=== PATIENT | male | born 1990 | race Caucasian/White ===

== ENCOUNTER 2018-10-07 20:10 | Emergency (ER) | payer BC ==
[2018-10-07 20:19] VITALS: BP 156/88; PULSE 98; TEMP 97.8; BMI 29.0
--- NOTE | 2018-10-07 20:42 | PDOC ---
Documentation entered by Alireza Frost SCRIBE, acting as scribe for Kai Le MD. Kai Le MD: This documentation has been prepared by the Margot loyd Juan Manue, SCRIBE, under my direction and personally reviewed by me in its entirety. I confirm that the documentation accurately reflects all work, treatment, procedures, and medical decision making performed by me. History of Present Illness - General Chief Complaint: Laceration Stated Complaint: CHIN LACERATION Time Seen by Provider: 10/07/18 20:21 History Source: Patient Exam Limitations: No Limitations - History of Present Illness Initial Comments: 10/07/18 20:39 The patient is a 28 year old male, who presents to the ED complaining of a chin laceration that occurred today. He notes that he was playing softball when he slid into second base and hit his chin against the ground. He reports blood from the area and was able to stop the bleeding by applying pressure with a paper towel. He denies any loss of consciousness. The patient denies any head trauma or any other kind of injury. PAST MEDICAL HISTORY: no significant history PAST SURGICAL HISTORY: no significant history FAMILY HISTORY: no pertinent history SOCIAL HISTORY: Pt lives with family and is employed. MEDICATIONS: reviewed ALLERGIES: As per nursing notes General: No fevers or chills, no weakness, no weight loss HEENT: No change in vision. No sore throat,. No ear pain Chin: (+) Laceration under the chin. CardioVascular: No chest pain or shortness of breath Respiratory:No cough, or wheezing. Gastrointestinal: no nausea, vomiting, diarrhea or constipation, No rectal bleeding Genitourinary: No dysuria, hematuria, or frequency Musculoskeletal: No joint or muscle pain or swelling Neurologic: No headache, vertigo, dizziness or loss of consciousness Psychiatric: nor depression Skin: No rashes or easy bruising Endocrine: no increased thirst or abnormal weight change Allergic: no skin or latex allergy All other systems reviewed and normal GENERAL: The patient is awake, alert, and fully oriented, in no acute distress. HEAD: Normal with no signs of trauma. CHIN: (+) 1.5 cm laceration submendal area of the chin, no bony tenderness, no lose teeth, no tenderness of the jaw. EYES: Pupils equal, round and reactive to light, extraocular movements intact, sclera anicteric, conjunctiva clear. EXTREMITIES: Normal range of motion, no edema. NEUROLOGICAL: Normal speech, normal gait. PSYCH: Normal mood, normal affect. SKIN: Warm, Dry, normal turgor, no rashes or lesions noted. 10/07/18 20:41 Assessment and plan: This is a 28-year-old male who comes in complaining of a chin laceration. Patient slid into second base and hit his chin on the ground resulting in the laceration. Patient denies any neck pain or any other injuries. Laceration will be sutured and patient discharged 10/07/18 20:43 Procedure note laceration repair Laceration was anesthetized with 3 mL of lidocaine no epinephrine Laceration was cleaned with approximately 100 mL using a Zerowet and pressure irrigation Laceration was closed with a total of 4 sutures of 50 simple interrupted Sterile dressing was applied patient tolerated well Past History - Past Medical History Allergies/Adverse Reactions: Allergies Allergy/AdvReac Type Severity Reaction Status Date / Time amoxicillin Allergy Hives Verified 10/07/18 20:11 Home Medications: Ambulatory Orders NK [No Known Home Medication] 10/07/18 COPD: No Other medical history: DENIES - Suicide/Smoking/Psychosocial Hx Smoking History: Never smoked Have you smoked in the past 12 months: No Information on smoking cessation initiated: No Hx Alcohol Use: (social) *Physical Exam - Vital Signs Last Vital Signs Temp Pulse Resp BP Pulse Ox 97.8 F 98 H 16 156/88 99 10/07/18 20:11 10/07/18 20:11 10/07/18 20:11 10/07/18 20:11 10/07/18 20:11 *DC/Admit/Observation/Transfer Diagnosis at time of Disposition: Laceration of chin Qualifiers: Encounter type: initial encounter Qualified Code(s): S01.81XA - Laceration without foreign body of other part of head, initial encounter - Discharge Dispostion Disposition: HOME Condition at time of disposition: Stable Decision to Admit order: No - Referrals - Patient Instructions Printed Discharge Instructions: DI for Laceration Repair Additional Instructions: Suture removal in 8-10 days. Tylenol or Motrin as needed for pain. Return to the emergency department immediately with ANY new, persistent or worsening symptoms. Continue any medications as previously prescribed by your physician. You should follow up with your primary doctor as soon as possible regarding today's emergency department visit. . Please make sure your doctor reviews the results of your emergency evaluation. Thank you for coming to the Emergency Department today for your care. It was a pleasure to see you today. Please note that your evaluation is INCOMPLETE until you follow-up with your doctor. - Post Discharge Activity - Attestations Scribe Attestion: 10/07/18 20:39 Documentation prepared by Alireza Frost, acting as medical billing service for Kai Le MD
[2018-10-07] MEDS ORDERED: DIPHTH,PERTUSS(ACELL),TET 0.5 ML DISP.SYRIN IM ONE ×2 (20:44→20:46)
== END 2018-10-07 21:05 | disposition home or self-care (01) ==
LOC: FER 20:10
PROC: 0HQ1XZZ Repair Face Skin, External Approach (ICD-10-PCS; principal; 2018-10-07)
PROC: 3E0234Z Introduction of Serum, Toxoid and Vaccine into Muscle, Percutaneous Approach (ICD-10-PCS; 2018-10-07)
DX: S01.81XA Laceration without foreign body of other part of head, initial encounter (principal); W45.8XXA Other foreign body or object entering through skin, initial encounter; Y93.64 Activity, baseball; Y92.320 Baseball field as the place of occurrence of the external cause
CPT/HCPCS: 90715; 99283-25

== ENCOUNTER 2019-03-05 01:20 | Emergency (ER) | payer BC ==
[2019-03-05 01:32] VITALS: BP 133/78; PULSE 85; TEMP 97.8; BMI 29.1
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
[2019-03-05] MEDS ORDERED: IBUPROFEN 400 MG TABLET (FP) PO ONE (02:42)
[2019-03-05] MEDS ORDERED: IBUPROFEN 600 MG TABLET (FP) PO ONE (02:45)
== END 2019-03-05 02:53 | disposition home or self-care (01) ==
LOC: FER 01:20
DX: S82.891A Other fracture of right lower leg, initial encounter for closed fracture (principal); I10 Essential (primary) hypertension; Y04.2XXA Assault by strike against or bumped into by another person, initial encounter; Y93.89 Activity, other specified; Y92.89 Other specified places as the place of occurrence of the external cause; Z88.8 Allergy status to other drugs, medicaments and biological substances
CPT/HCPCS: 73610-TC-RT-FY; 73630-TC-RT-FY; 99282-25